=== PATIENT | male | born 1940 | race Caucasian/White ===

== ENCOUNTER 2024-03-16 15:47 | Inpatient (IN) | payer MEDICARE, BC ==
[~2024-03-16] VITALS: Ht 177.8 cm; Wt 95.2 kg
[2024-03-16] MEDS ORDERED: ROSU20TA61 PO ×2 (16:13→22:01)
[2024-03-16] MEDS ORDERED: CHLO125TA (16:13)
[2024-03-16] MEDS ORDERED: ASPI81CH33 PO (16:13)
[2024-03-16] MEDS ORDERED: ACET32TAB PO (16:13)
[2024-03-16] MEDS ORDERED: THERTAB52 PO (16:13)
[2024-03-16] MEDS ORDERED: LISI40TA4 (16:13)
[2024-03-16 19:46] LABS: BASO % 0.2 % (0.0-1.0); HEMATOCRIT 42.6 % (42.0-52.0); HEMOGLOBIN 14.7 g/dl (13.5-17.5); LYMPH # 0.6 10^3/uL (1.5-5.0); LYMPH % 2.7 % (24.0-44.0); MEAN CORPUSCULAR HEMOGLOBIN 33.4 pg (27.0-33.0); MEAN CORPUSCULAR HGB CONC 34.5 g/dl (32.0-36.5); MEAN CORPUSCULAR VOLUME 96.8 fl (80.0-96.0); MONO # 0.9 10^3/uL (0.0-0.8); MONO % 4.1 % (2.0-8.0); NEUTROPHILS % 92.1 % (36.0-66.0); PLATELET COUNT, AUTOMATED 176 10^3/uL (150-450); WHITE BLOOD COUNT 22.8 10^3/uL (4.0-10.0)
[2024-03-16] MEDS: IBUPROFEN 600MG TAB PO ONE (19:56)
[2024-03-16] MEDS: LevoFLOXacin IV 750 MG in IV 1 EA IV ONE (19:56)
[2024-03-16 19:57] LABS: INR 1.3; PARTIAL THROMBOPLASTIN TIME 27.1 SECONDS (24.8-34.2); PROTHROMBIN TIME 15.8 SECONDS (12.5-14.5)
[2024-03-16 20:21] LABS: ALBUMIN 3.4 G/DL (3.2-5.2); ALKALINE PHOSPHATASE 89 U/L (46-116); ALT/SGPT 16 U/L (7.0-40); AST/SGOT 13 U/L (<34); BILIRUBIN,TOTAL 2.5 MG/DL (0.3-1.2); BLOOD UREA NITROGEN 18 MG/DL (9-23); CALCIUM LEVEL 9.3 MG/DL (8.3-10.6); CARBON DIOXIDE LEVEL 27 MMOL/L (20-31); CHLORIDE LEVEL 102 MMOL/L (98-107); CREATININE FOR GFR 0.91 MG/DL (0.70-1.30); GLOMERULAR FILTRATION RATE > 60.0 (>35); GLUCOSE, FASTING 119 MG/DL (74-106); POTASSIUM SERUM 4.3 MMOL/L (3.5-5.1); SODIUM LEVEL 135 MMOL/L (136-145); TOTAL PROTEIN 6.4 G/DL (5.7-8.2)
[2024-03-16 20:23] LABS: FREE T4 1.15 NG/DL (0.89-1.76); THYROID STIMULATING HORMONE 0.544 uIU/ML (0.55-4.78)
[2024-03-16] MEDS: LIDOCAINE 2% 5ML JELLY UROJET TOP ONE (20:25)
[2024-03-16] MEDS ORDERED: CHLO125TA PO (22:01)
[2024-03-16] MEDS ORDERED: MULT-40 PO (22:01)
[2024-03-16] MEDS ORDERED: ASPI-615 PO (22:01)
[2024-03-16] MEDS ORDERED: LISI40TA4 PO (22:01)
[2024-03-16] MEDS ORDERED: HOME MED LIST COMPLETE! XX SCH (22:05)
[2024-03-16] MEDS: LR 1,000 ML IV SCH (22:40)
[2024-03-16] MEDS: cefTRIAXone SOD 2 GM in D5W MINI-BAG PLUS 50 ML IV SCH (22:51)
[2024-03-17 07:50] LABS: HEMATOCRIT 37.8 % (42.0-52.0); HEMOGLOBIN 13.1 g/dl (13.5-17.5); MEAN CORPUSCULAR HEMOGLOBIN 33.6 pg (27.0-33.0); MEAN CORPUSCULAR HGB CONC 34.7 g/dl (32.0-36.5); MEAN CORPUSCULAR VOLUME 96.9 fl (80.0-96.0); PLATELET COUNT, AUTOMATED 155 10^3/uL (150-450); WHITE BLOOD COUNT 19.7 10^3/uL (4.0-10.0)
[2024-03-17 08:54] LABS: ALBUMIN 2.6 G/DL (3.2-5.2); ALKALINE PHOSPHATASE 80 U/L (46-116); ALT/SGPT 13 U/L (7.0-40); AST/SGOT 13 U/L (<34); BILIRUBIN,TOTAL 1.5 MG/DL (0.3-1.2); BLOOD UREA NITROGEN 19 MG/DL (9-23); CALCIUM LEVEL 8.8 MG/DL (8.3-10.6); CARBON DIOXIDE LEVEL 28 MMOL/L (20-31); CHLORIDE LEVEL 103 MMOL/L (98-107); CREATININE FOR GFR 0.83 MG/DL (0.70-1.30); GLOMERULAR FILTRATION RATE > 60.0 (>35); GLUCOSE, FASTING 109 MG/DL (74-106); MAGNESIUM LEVEL 1.7 MG/DL (1.8-2.4); SODIUM LEVEL 137 MMOL/L (136-145); TOTAL PROTEIN 5.4 G/DL (5.7-8.2)
[2024-03-17] MEDS: ASPIRIN 81MG ENTERIC TABLET PO SCH (09:00)
[2024-03-17] MEDS: ENOXAPARIN 40MG/0.4ML SYRINGE (J1650 PER 10MG) SC SCH (09:00)
[2024-03-17] MEDS ORDERED: CHLORTHALIDONE 12.5MG PER 1/2 TABLET PO SCH (09:00)
[2024-03-17] MEDS ORDERED: lisinopriL 40MG TAB PO SCH (09:00)
[2024-03-17 14:06] VITALS: BP 121/67; TEMP 101.1; O2SAT 95
[2024-03-17] MEDS: ACETAMINOPHEN TAB 650MG DOSE (2X325MG) PO PRN (14:12)
[2024-03-17 15:25] VITALS: TEMP 99.8
[2024-03-17 20:00] VITALS: BP 126/67; TEMP 100.6; O2SAT 97
[2024-03-17] MEDS: ROSUVASTATIN 10 MG TAB (CRESTOR) PO SCH (21:20)
[2024-03-18 00:45] VITALS: TEMP 97
[2024-03-18 04:14] VITALS: BP 129/68; TEMP 97.3; O2SAT 97
[2024-03-18 06:27] LABS: HEMOGLOBIN 13.1 g/dl (13.5-17.5); MEAN CORPUSCULAR HEMOGLOBIN 33.2 pg (27.0-33.0); MEAN CORPUSCULAR HGB CONC 34.5 g/dl (32.0-36.5); MEAN CORPUSCULAR VOLUME 96.4 fl (80.0-96.0); PLATELET COUNT, AUTOMATED 148 10^3/uL (150-450); RED BLOOD COUNT 3.94 10^6/uL (4.30-6.10); WHITE BLOOD COUNT 12.9 10^3/uL (4.0-10.0)
[2024-03-18 06:36] LABS: ALBUMIN 2.4 G/DL (3.2-5.2); ALKALINE PHOSPHATASE 84 U/L (46-116); ALT/SGPT 13 U/L (7.0-40); AST/SGOT 14 U/L (<34); BILIRUBIN,TOTAL 0.9 MG/DL (0.3-1.2); BLOOD UREA NITROGEN 19 MG/DL (9-23); CALCIUM LEVEL 9.2 MG/DL (8.3-10.6); CARBON DIOXIDE LEVEL 27 MMOL/L (20-31); CHLORIDE LEVEL 104 MMOL/L (98-107); CREATININE FOR GFR 0.81 MG/DL (0.70-1.30); GLOMERULAR FILTRATION RATE > 60.0 (>35); GLUCOSE, FASTING 102 MG/DL (74-106); MAGNESIUM LEVEL 1.8 MG/DL (1.8-2.4); POTASSIUM SERUM 3.8 MMOL/L (3.5-5.1); SODIUM LEVEL 136 MMOL/L (136-145); TOTAL PROTEIN 5.1 G/DL (5.7-8.2)
[2024-03-18 12:00] VITALS: BP 132/71; TEMP 97.9; O2SAT 94
[2024-03-18 13:22] VITALS: TEMP 99.3
[2024-03-18] MEDS ORDERED: CEFD300CAP PO (13:27)
[2024-03-18] MEDS ORDERED: ACET1TAB55 PO (13:27)
[2024-03-18] MEDS ORDERED: FLOM0.4C39 PO (13:33)
[2024-03-18] MEDS ORDERED: BENZ-18 PO (13:40)
[2024-03-18] MEDS ORDERED: PREVNAR-20 VACCINE 0.5ML SYRINGE IM.IMMUN ONE (14:00)
== END 2024-03-18 14:36 | disposition home or self-care (01) | DRG 872 ==
LOC: M ED 15:47 → M ED INP 21:11 → M MSPAV 03-17 13:48
PROVIDERS: ADMIT Family Medicine; ATTEND Internal Medicine
DX: A41.9 Sepsis, unspecified organism (principal); N39.0 Urinary tract infection, site not specified; B96.20 Unspecified Escherichia coli [E. coli] as the cause of diseases classified elsewhere; I10 Essential (primary) hypertension; E80.6 Other disorders of bilirubin metabolism; R33.9 Retention of urine, unspecified; I25.10 Atherosclerotic heart disease of native coronary artery without angina pectoris; Z79.82 Long term (current) use of aspirin; Z79.899 Other long term (current) drug therapy; Z91.013 Allergy to seafood; Z11.52 Encounter for screening for COVID-19

== ENCOUNTER → 2024-03-25 | Outpatient (CLI) | payer MEDICARE, BC ==
[~2024-03-25] MED LIST: ACET1TAB55 PO; ACET32TAB PO; ASPI-615 PO; ASPI81CH33 PO; BENZ-18 PO; CEFD300CAP PO; CHLO125TA; CHLO125TA PO; FLOM0.4C39 PO; LISI40TA4; LISI40TA4 PO; MULT-40 PO; ROSU20TA61 PO; THERTAB52 PO
[2024-03-25 10:23] LABS: APPEARANCE, URINE CLEAR (CLEAR); BACTERIA, URINE AUTO NEGATIVE (NEGATIVE); BILIRUBIN, URINE AUTO NEGATIVE (NEGATIVE); BLOOD, URINE BLOOD 1+ (NEGATIVE); COLOR, URINE YELLOW (YELLOW); GLUCOSE, URINE (UA) AUTO NEGATIVE (NEGATIVE); KETONE, URINE AUTO NEGATIVE (NEGATIVE); LEUKOCYTE ESTERASE, URINE AUTO NEGATIVE (NEGATIVE); NITRITE, URINE AUTO NEGATIVE (NEGATIVE); PROTEIN, URINE AUTO NEGATIVE (NEGATIVE); RBC, URINE AUTO 1 /HPF (0-3); SPECIFIC GRAVITY URINE AUTO 1.008 (1.002-1.035); SQUAMOUS EPITHELIAL CELL UR AU 0 /HPF (0-6); WBC, URINE AUTO 1 /HPF (0-3)
[2024-03-25 10:42] LABS: BASO # 0.1 10^3/uL (0.0-0.2); BASO % 0.9 % (0.0-1.0); EOS # 0.5 10^3/uL (0.0-0.5); EOS % 6.1 % (0.0-3.0); HEMATOCRIT 41.4 % (42.0-52.0); LYMPH # 1.2 10^3/uL (1.5-5.0); MEAN CORPUSCULAR HEMOGLOBIN 33.3 pg (27.0-33.0); MEAN CORPUSCULAR HGB CONC 33.8 g/dl (32.0-36.5); MEAN CORPUSCULAR VOLUME 98.3 fl (80.0-96.0); MONO # 0.5 10^3/uL (0.0-0.8); MONO % 6.3 % (2.0-8.0); NEUTROPHILS # 5.7 10^3/uL (1.5-8.5); NEUTROPHILS % 68.9 % (36.0-66.0); PLATELET COUNT, AUTOMATED 338 10^3/uL (150-450); RED BLOOD COUNT 4.21 10^6/uL (4.30-6.10); WHITE BLOOD COUNT 8.2 10^3/uL (4.0-10.0)
[2024-03-25 11:06] LABS: HEMOGLOBIN A1c 5.6 % (4.0-6.0)
[2024-03-25 11:10] LABS: C REACTIVE PROTEIN QUANTITATIV 1.8 MG/DL (<1.0)
[2024-03-25 11:11] LABS: CHOLESTEROL RISK RATIO 5.07 (<5); HDL CHOLESTEROL 27.6 MG/DL (>40); LDL CHOLESTEROL 80.4 MG/DL (<100); NON-HDL-C 112.4 MG/DL
== END ==
LOC: M PLALAB 09:05
PROVIDERS: ATTEND Internal Medicine Hematology
DX: Z00.00 Encounter for general adult medical examination without abnormal findings (principal); N39.0 Urinary tract infection, site not specified; Z79.899 Other long term (current) drug therapy